=== PATIENT | female | born 1995 | race Caucasian/White ===

== ENCOUNTER 2017-10-17 11:00 | Inpatient (IN) | payer MEDICAID ==
[~2017-10-17] VITALS: Ht 154.9 cm; Wt 71.4 kg
[2017-10-17] MEDS ORDERED: LACTATED RINGERS 1,000 ML IV SCH ×2 (11:03→17:27)
[2017-10-17] MEDS ORDERED: D5%-LACTATED RINGERS 1,000 ML IV SCH (11:03)
[2017-10-17] MEDS ORDERED: OXYTOCIN 30U/ 0.9% NaCL 500ML 500 ML IV ONE (11:03)
[2017-10-17] MEDS ORDERED: OXYTOCIN 30U/ 0.9% NaCL 500ML 500 ML IV PRN (11:03)
[2017-10-17] MEDS ORDERED: METOCLOPRAMIDE 5 MG/ML, 2ML IVPush PRN (11:30)
[2017-10-17] MEDS ORDERED: SODIUM CITRATE/CITRIC ACID 30 ML UDC PO PRN (11:30)
[2017-10-17] MEDS ORDERED: FENTANYL PF 100 MCG/2ML IV PRN (11:30)
[2017-10-17] MEDS ORDERED: FENTANYL PF 100 MCG/2ML IVPush PRN (11:30)
[2017-10-17] MEDS ORDERED: NEWBORN KIT ONE ×2 (11:41→11:50)
[2017-10-17] MEDS ORDERED: OXYTOCIN 30U/ 0.9% NaCL 500ML 500 ML ONE ×2 (11:41→19:56)
[2017-10-17 11:53] LABS: BASOPHILS # (AUTO) 0.03 x10^3/uL (0-0.1); BASOPHILS % (AUTO) 0 % (0-1); EOSINOPHILS # (AUTO) 0.01 x10^3/uL (0-0.4); EOSINOPHILS % (AUTO) 0 % (1-7); LYMPHOCYTES # (AUTO) 1.78 x10^3/uL (1-3.4); LYMPHOCYTES % (AUTO) 19 % (22-44); MD NO; MEAN CORPUSCULAR HEMOGLOBIN 29.4 pg (27.0-34.8); MEAN CORPUSCULAR HGB CONC 33.4 g/dL (32.4-35.8); MEAN PLATELET VOLUME 10.3 fL (7.4-10.4); MONOCYTES # (AUTO) 0.65 x10^3/uL (0.2-0.8); MONOCYTES % (AUTO) 7 % (2-9); NEUTROPHILS % (AUTO) 73 % (42-75); PLATELET COUNT 198 x10^3/uL (130-400); RED BLOOD COUNT 4.02 x10^6/uL (3.82-5.3); RED CELL DISTRIBUTION WIDTH 14.6 % (9.6-15.2)
[2017-10-17] MEDS ORDERED: ACETAMINOPHEN 325 MG TABLET ONE (12:00)
[2017-10-17] MEDS ORDERED: ACETAMINOPHEN 325 MG TABLET PO PRN ×2 (12:30→20:00)
[2017-10-17] MEDS ORDERED: FENTANYL PF 100 MCG/2ML ONE (16:38)
[2017-10-17] MEDS ORDERED: FENTANYL/BUPIV./NS/PF 250 ML EPIDCONT ONE (16:38)
[2017-10-17] MEDS ORDERED: BUPIVACAINE 0.25% ONE (16:38)
[2017-10-17] MEDS ORDERED: FENTANYL/BUPIV./NS/PF 250 ML EPIDCONT SCH (17:27)
[2017-10-17] MEDS ORDERED: EPHEDRINE 50 MG/ML, 1ML IVPush PRN (17:30)
[2017-10-17] MEDS ORDERED: ONDANSETRON 2MG/ML, 2ML IVPush PRN (17:30)
[2017-10-17] MEDS ORDERED: LACTATED RINGERS 1,000 ML IVBOLUS PRN (17:30)
[2017-10-17] MEDS ORDERED: IBUPROFEN 600 MG TABLET ONE (19:55)
[2017-10-17] MEDS ORDERED: ONDANSETRON 2MG/ML, 2ML IV PRN (20:00)
[2017-10-17] MEDS ORDERED: CARBOPROST TROMETHAMINE 250 MCG/ML, 1ML IM PRN (20:00)
[2017-10-17] MEDS ORDERED: BISACODYL 10 MG SUPP PR PRN (20:00)
[2017-10-17] MEDS ORDERED: MISOPROSTOL 200 MCG TABLET PR PRN (20:00)
[2017-10-17] MEDS ORDERED: OXYcodone/APAP 5/325MG TABLET PO PRN ×2 (20:00)
[2017-10-17] MEDS ORDERED: METOCLOPRAMIDE 5 MG/ML, 2ML IV PRN (20:00)
[2017-10-17] MEDS ORDERED: GLYCERIN ADULT SUPP PR PRN (20:00)
[2017-10-17] MEDS ORDERED: IBUPROFEN 800 MG TABLET PO PRN (20:00)
[2017-10-17] MEDS: IBUPROFEN 600 MG TABLET PO PRN (20:01)
[2017-10-17] MEDS: PLEASE ENTER HEIGHT AND WEIGHT MC SCH ×2 (20:30→20:56)
[2017-10-17] MEDS: OXYTOCIN 30U/ 0.9% NaCL 500ML 500 ML IV SCH (20:53)
[2017-10-17 22:00] VITALS: BP 117/80
[2017-10-17 22:42] VITALS: BP 100/60
[2017-10-18 00:30] VITALS: BP 112/67
[2017-10-18 03:01] LABS: BASOPHILS # (AUTO) 0.04 x10^3/uL (0-0.1); BASOPHILS % (AUTO) 0 % (0-1); EOSINOPHILS # (AUTO) 0.01 x10^3/uL (0-0.4); EOSINOPHILS % (AUTO) 0 % (1-7); LYMPHOCYTES # (AUTO) 1.96 x10^3/uL (1-3.4); LYMPHOCYTES % (AUTO) 14 % (22-44); MD NO; MEAN CORPUSCULAR HEMOGLOBIN 29.4 pg (27.0-34.8); MEAN CORPUSCULAR HGB CONC 33.3 g/dL (32.4-35.8); MEAN CORPUSCULAR VOLUME 88.4 fL (80-100); MEAN PLATELET VOLUME 9.6 fL (7.4-10.4); MONOCYTES % (AUTO) 6 % (2-9); NEUTROPHILS # (AUTO) 11.65 x10^3/uL (1.8-6.8); NEUTROPHILS % (AUTO) 81 % (42-75); PLATELET COUNT 182 x10^3/uL (130-400); RED BLOOD COUNT 3.93 x10^6/uL (3.82-5.3); RED CELL DISTRIBUTION WIDTH 14.6 % (9.6-15.2)
[2017-10-18 04:08] VITALS: BP 109/68
[2017-10-18] MEDS: IBUPROFEN 600 MG TABLET PO PRN ×3 (04:28→21:43)
[2017-10-18] MEDS: PLEASE ENTER HEIGHT AND WEIGHT MC SCH ×3 (04:30→20:30)
[2017-10-18] MEDS: OXYTOCIN 30U/ 0.9% NaCL 500ML 500 ML IV SCH ×2 (05:56→15:56)
[2017-10-18 08:00] VITALS: BP 118/84
[2017-10-18] MEDS: PRENATAL VIT/IRON/FA 1 EACH TABLET PO SCH (09:00)
[2017-10-18 12:00] VITALS: BP 109/64
[2017-10-18 16:00] VITALS: BP 110/72
[2017-10-18 20:00] VITALS: BP 118/82
[2017-10-18] MEDS: DOCUSATE 100 MG CAPSULE PO PRN (21:41)
[2017-10-19] MEDS: OXYTOCIN 30U/ 0.9% NaCL 500ML 500 ML IV SCH (01:56)
[2017-10-19] MEDS: IBUPROFEN 600 MG TABLET PO PRN ×2 (03:00→09:12)
[2017-10-19] MEDS: PLEASE ENTER HEIGHT AND WEIGHT MC SCH (04:30)
[2017-10-19 09:12] VITALS: BP 123/68
[2017-10-19] MEDS: DOCUSATE 100 MG CAPSULE PO PRN (09:13)
[2017-10-19] MEDS: PRENATAL VIT/IRON/FA 1 EACH TABLET PO SCH (09:13)
[2017-10-19] MEDS ORDERED: IBUP-1222 PO (10:29)
== END 2017-10-19 14:09 | disposition home or self-care (01) | DRG 775 ==
LOC: LDIP 11:00 → 2NW 21:40
PROVIDERS: ADMIT Student in an Organized Health Care Education/Training Program; ATTEND Student in an Organized Health Care Education/Training Program
PROC: 10E0XZZ Delivery of Products of Conception, External Approach (ICD-10-PCS; principal; 2017-10-17)
PROC: 3E0R3BZ Introduction of Anesthetic Agent into Spinal Canal, Percutaneous Approach (ICD-10-PCS; 2017-10-17)
PROC: 00HU33Z Insertion of Infusion Device into Spinal Canal, Percutaneous Approach (ICD-10-PCS; 2017-10-17)
DX: O13.4 Gestational [pregnancy-induced] hypertension without significant proteinuria, complicating childbirth (principal); O14.94 Unspecified pre-eclampsia, complicating childbirth; Z37.0 Single live birth; Z3A.38 38 weeks gestation of pregnancy
CPT/HCPCS: 36415; 85025; 86850; 86900; J2590; J3010; J7120; J7121

== ENCOUNTER 2019-10-04 21:20 | Outpatient (CLI) | payer MEDICAID ==
[~2019-10-04] VITALS: Ht 154.9 cm; Wt 81.0 kg
[~2019-10-04 21:20] MED LIST: IBUP-1222 PO
[2019-10-04 23:09] LABS: BASOPHILS # (AUTO) 0.02 x10^3/uL (0-0.1); BASOPHILS % (AUTO) 0 % (0-1); EOSINOPHILS # (AUTO) 0.04 x10^3/uL (0-0.4); EOSINOPHILS % (AUTO) 0 % (1-7); LYMPHOCYTES # (AUTO) 2.16 x10^3/uL (1-3.4); LYMPHOCYTES % (AUTO) 20 % (22-44); MD NO; MEAN CORPUSCULAR HEMOGLOBIN 30.3 pg (27.0-34.8); MEAN CORPUSCULAR HGB CONC 33.9 g/dL (32.4-35.8); MEAN CORPUSCULAR VOLUME 89.4 fL (80-100); MEAN PLATELET VOLUME 9.8 fL (7.4-10.4); MONOCYTES # (AUTO) 0.75 x10^3/uL (0.2-0.8); MONOCYTES % (AUTO) 7 % (2-9); NEUTROPHILS # (AUTO) 7.62 x10^3/uL (1.8-6.8); NEUTROPHILS % (AUTO) 72 % (42-75); PLATELET COUNT 209 x10^3/uL (130-400); RED BLOOD COUNT 3.86 x10^6/uL (3.82-5.3); RED CELL DISTRIBUTION WIDTH 14.2 % (9.6-15.2)
[2019-10-04 23:19] LABS: ALANINE AMINOTRANSFERASE 27 U/L (12-78); ALBUMIN 2.6 g/dL (3.4-5.0); ANION GAP 9 mmol/L (5-15); CALCIUM 8.5 mg/dL (8.5-10.1); CHLORIDE 109 mmol/L (98-107); CREATININE 0.51 mg/dL (0.55-1.02)
[2019-10-04 23:21] LABS: ALKALINE PHOSPHATASE 139 U/L (45-117); TOTAL PROTEIN 6.6 g/dL (6.4-8.2)
[2019-10-04 23:22] LABS: BILIRUBIN,TOTAL < 0.1 mg/dL (0.2-1.0)
== END 2019-10-05 01:10 | disposition home or self-care (01) ==
LOC: LDOP 21:20
PROVIDERS: ATTEND Student in an Organized Health Care Education/Training Program
DX: O62.8 Other abnormalities of forces of labor (principal); Z3A.37 37 weeks gestation of pregnancy
CPT/HCPCS: 36415; 59025; 80053; 84550; 85025; 99211; G0463

== ENCOUNTER 2019-10-14 11:29 | Outpatient (CLI) | payer MEDICAID ==
[~2019-10-14] VITALS: Ht 154.9 cm; Wt 80.5 kg
[2019-10-14 11:48] VITALS: BP 131/85
[2019-10-14 12:16] LABS: BASOPHILS # (AUTO) 0.03 x10^3/uL (0-0.1); BASOPHILS % (AUTO) 0 % (0-1); EOSINOPHILS # (AUTO) 0.01 x10^3/uL (0-0.4); EOSINOPHILS % (AUTO) 0 % (1-7); LYMPHOCYTES # (AUTO) 1.63 x10^3/uL (1-3.4); LYMPHOCYTES % (AUTO) 18 % (22-44); MD NO; MEAN CORPUSCULAR HEMOGLOBIN 29.4 pg (27.0-34.8); MEAN CORPUSCULAR HGB CONC 32.8 g/dL (32.4-35.8); MEAN CORPUSCULAR VOLUME 89.7 fL (80-100); MEAN PLATELET VOLUME 9.5 fL (7.4-10.4); MONOCYTES # (AUTO) 0.64 x10^3/uL (0.2-0.8); MONOCYTES % (AUTO) 7 % (2-9); NEUTROPHILS # (AUTO) 6.78 x10^3/uL (1.8-6.8); NEUTROPHILS % (AUTO) 75 % (42-75); PLATELET COUNT 205 x10^3/uL (130-400); RED BLOOD COUNT 4.07 x10^6/uL (3.82-5.3); RED CELL DISTRIBUTION WIDTH 14.4 % (9.6-15.2)
[2019-10-14 12:24] LABS: MICROSCOPIC INDICATED
[2019-10-14 12:25] LABS: ALANINE AMINOTRANSFERASE 26 U/L (12-78); ALBUMIN 2.7 g/dL (3.4-5.0); ANION GAP 9 mmol/L (5-15); CALCIUM 8.9 mg/dL (8.5-10.1); CHLORIDE 109 mmol/L (98-107); CREATININE 0.66 mg/dL (0.55-1.02)
[2019-10-14 12:27] LABS: ALKALINE PHOSPHATASE 157 U/L (45-117); BILIRUBIN,TOTAL 0.4 mg/dL (0.2-1.0); TOTAL PROTEIN 6.8 g/dL (6.4-8.2)
[2019-10-14 12:28] LABS: BILIRUBIN, DIRECT < 0.1 mg/dL (0.1-0.2)
== END 2019-10-14 13:35 | disposition home or self-care (01) ==
LOC: LDOP 11:29
PROVIDERS: ATTEND Student in an Organized Health Care Education/Training Program
DX: Z34.83 Encounter for supervision of other normal pregnancy, third trimester (principal); Z3A.38 38 weeks gestation of pregnancy
CPT/HCPCS: 36415; 59025; 80053; 81001; 82248; 82570; 84156; 84550; 85025; 99211; G0463

== ENCOUNTER 2019-10-14 20:09 | Inpatient (IN) | payer MEDICAID ==
[~2019-10-14] VITALS: Ht 154.9 cm; Wt 80.5 kg
[2019-10-14 21:03] LABS: MICROSCOPIC INDICATED
[2019-10-14] MEDS ORDERED: OXYTOCIN 30U/ 0.9% NaCL 500ML 500 ML IV PRN (21:50)
[2019-10-14] MEDS ORDERED: OXYTOCIN 30U/ 0.9% NaCL 500ML 500 ML IV ONE (21:50)
[2019-10-14] MEDS ORDERED: D5%-LACTATED RINGERS 1,000 ML IV SCH (21:50)
[2019-10-14] MEDS ORDERED: LIDOCAINE 1%, 20ML ONE (21:56)
[2019-10-14] MEDS ORDERED: NEWBORN KIT ONE (21:56)
[2019-10-14] MEDS ORDERED: MISOPROSTOL 200 MCG TABLET ONE (21:57)
[2019-10-14] MEDS ORDERED: OXYTOCIN 30U/ 0.9% NaCL 500ML 500 ML ONE (21:57)
[2019-10-14] MEDS ORDERED: FENTANYL PF 100 MCG/2ML IVPush PRN (22:00)
[2019-10-14] MEDS: LACTATED RINGERS 1,000 ML IV SCH (22:00)
[2019-10-14] MEDS ORDERED: TERBUTALINE 1 MG/ML, 1ML IVPush PRN (22:00)
[2019-10-14] MEDS ORDERED: SODIUM CITRATE/CITRIC ACID 30 ML UDC PO PRN (22:00)
[2019-10-14] MEDS ORDERED: FENTANYL PF 100 MCG/2ML IV PRN (22:00)
[2019-10-14] MEDS ORDERED: TERBUTALINE 1 MG/ML, 1ML SQ PRN (22:00)
[2019-10-14] MEDS ORDERED: ONDANSETRON 2MG/ML, 2ML ONE (22:06)
[2019-10-14] MEDS: ONDANSETRON 2MG/ML, 2ML IVPush PRN (22:15)
[2019-10-14 22:20] LABS: BASOPHILS # (AUTO) 0.05 x10^3/uL (0-0.1); BASOPHILS % (AUTO) 1 % (0-1); EOSINOPHILS # (AUTO) 0.03 x10^3/uL (0-0.4); EOSINOPHILS % (AUTO) 0 % (1-7); LYMPHOCYTES # (AUTO) 2.28 x10^3/uL (1-3.4); LYMPHOCYTES % (AUTO) 26 % (22-44); MD NO; MEAN CORPUSCULAR HGB CONC 33.5 g/dL (32.4-35.8); MEAN CORPUSCULAR VOLUME 89.6 fL (80-100); MEAN PLATELET VOLUME 9.7 fL (7.4-10.4); MONOCYTES # (AUTO) 0.74 x10^3/uL (0.2-0.8); MONOCYTES % (AUTO) 8 % (2-9); NEUTROPHILS # (AUTO) 5.68 x10^3/uL (1.8-6.8); NEUTROPHILS % (AUTO) 65 % (42-75); PLATELET COUNT 197 x10^3/uL (130-400); RED BLOOD COUNT 3.95 x10^6/uL (3.82-5.3); RED CELL DISTRIBUTION WIDTH 14.2 % (9.6-15.2)
[2019-10-15] MEDS: LACTATED RINGERS 1,000 ML IV SCH ×2 (07:33→08:55)
[2019-10-15] MEDS ORDERED: BUPIVACAINE 0.25% ONE (08:50)
[2019-10-15] MEDS ORDERED: FENTANYL/BUPIV./NS/PF 250 ML EPIDCONT ONE (08:50)
[2019-10-15] MEDS ORDERED: LACTATED RINGERS 1,000 ML IV SCH (11:06)
[2019-10-15] MEDS ORDERED: FENTANYL/BUPIV./NS/PF 250 ML EPIDCONT SCH (11:06)
[2019-10-15] MEDS ORDERED: NALOXONE 0.4 MG/ML, 1ML IVPush PRN (11:30)
[2019-10-15] MEDS ORDERED: EPHEDRINE 50 MG/ML, 1ML IVPush PRN (11:30)
[2019-10-15] MEDS ORDERED: ONDANSETRON 2MG/ML, 2ML IVPush PRN (11:30)
[2019-10-15] MEDS ORDERED: LACTATED RINGERS 1,000 ML IVBOLUS PRN (11:30)
[2019-10-15] MEDS ORDERED: DIPHENHYDRAMINE 50 MG/ML, 1ML IVPush PRN (11:30)
[2019-10-15] MEDS ORDERED: ONDANSETRON 2MG/ML, 2ML ONE (11:35)
[2019-10-15] MEDS: ONDANSETRON 2MG/ML, 2ML IVPush PRN (11:36)
[2019-10-15] MEDS ORDERED: OXYTOCIN 30U/ 0.9% NaCL 500ML 500 ML ONE (17:14)
[2019-10-15] MEDS: OXYTOCIN 30U/ 0.9% NaCL 500ML 500 ML IV SCH (17:37)
[2019-10-15] MEDS ORDERED: ONDANSETRON 2MG/ML, 2ML IV PRN (18:00)
[2019-10-15] MEDS ORDERED: METHYLERGONOVINE 0.2 MG/ML IM PRN (18:00)
[2019-10-15] MEDS ORDERED: ACETAMINOPHEN 325 MG TABLET PO PRN (18:00)
[2019-10-15] MEDS ORDERED: CARBOPROST TROMETHAMINE 250 MCG/ML, 1ML IM PRN (18:00)
[2019-10-15] MEDS ORDERED: GLYCERIN ADULT SUPP PR PRN (18:00)
[2019-10-15] MEDS ORDERED: BISACODYL 10 MG SUPP PR PRN (18:00)
[2019-10-15] MEDS ORDERED: DOCUSATE 100 MG CAPSULE PO PRN (18:00)
[2019-10-15] MEDS ORDERED: OXYcodone/APAP 5/325MG TABLET PO PRN ×2 (18:00)
[2019-10-15] MEDS ORDERED: METOCLOPRAMIDE 5 MG/ML, 2ML IV PRN (18:00)
[2019-10-15] MEDS ORDERED: MISOPROSTOL 200 MCG TABLET PR PRN (18:00)
[2019-10-15] MEDS ORDERED: IBUPROFEN 800 MG TABLET PO PRN (18:00)
[2019-10-15] MEDS ORDERED: SIMETHICONE 80 MG CHEW TAB PO PRN (18:00)
[2019-10-15 20:30] VITALS: BP 112/79
[2019-10-15] MEDS: IBUPROFEN 600 MG TABLET PO PRN (20:57)
[2019-10-16 00:30] VITALS: BP 118/77
[2019-10-16 01:22] LABS: BASOPHILS # (AUTO) 0.04 x10^3/uL (0-0.1); BASOPHILS % (AUTO) 0 % (0-1); EOSINOPHILS # (AUTO) 0.02 x10^3/uL (0-0.4); EOSINOPHILS % (AUTO) 0 % (1-7); LYMPHOCYTES # (AUTO) 1.64 x10^3/uL (1-3.4); LYMPHOCYTES % (AUTO) 13 % (22-44); MD NO; MEAN CORPUSCULAR HEMOGLOBIN 29.7 pg (27.0-34.8); MEAN CORPUSCULAR HGB CONC 33.2 g/dL (32.4-35.8); MEAN CORPUSCULAR VOLUME 89.5 fL (80-100); MEAN PLATELET VOLUME 9.8 fL (7.4-10.4); MONOCYTES # (AUTO) 0.64 x10^3/uL (0.2-0.8); MONOCYTES % (AUTO) 5 % (2-9); NEUTROPHILS # (AUTO) 10.31 x10^3/uL (1.8-6.8); NEUTROPHILS % (AUTO) 82 % (42-75); PLATELET COUNT 177 x10^3/uL (130-400); RED BLOOD COUNT 3.89 x10^6/uL (3.82-5.3); RED CELL DISTRIBUTION WIDTH 13.8 % (9.6-15.2)
[2019-10-16] MEDS: OXYTOCIN 30U/ 0.9% NaCL 500ML 500 ML IV SCH ×2 (03:37→13:37)
[2019-10-16 04:00] VITALS: BP 108/68
[2019-10-16] MEDS: IBUPROFEN 600 MG TABLET PO PRN ×2 (04:29→11:50)
[2019-10-16 07:54] VITALS: BP 114/77
[2019-10-16] MEDS ORDERED: PRENATAL VIT/IRON/FA 1 EACH TABLET PO SCH (09:00)
[2019-10-16] MEDS ORDERED: PREN1TAB98 PO (09:03)
[2019-10-16] MEDS ORDERED: IBUP-1222 PO (09:03)
[2019-10-16 13:04] VITALS: BP 98/63
[2019-10-16 16:12] VITALS: BP 110/72
== END 2019-10-16 18:10 | disposition home or self-care (01) | DRG 560 ==
LOC: LDOP 20:09 → LDIP 21:51 → 2NW 10-15 20:25
PROVIDERS: ADMIT Student in an Organized Health Care Education/Training Program; ATTEND Student in an Organized Health Care Education/Training Program
PROC: 10E0XZZ Delivery of Products of Conception, External Approach (ICD-10-PCS; principal; 2019-10-15)
PROC: 10907ZC Drainage of Amniotic Fluid, Therapeutic from Products of Conception, Via Natural or Artificial Opening (ICD-10-PCS; 2019-10-15)
PROC: 3E033VJ Introduction of Other Hormone into Peripheral Vein, Percutaneous Approach (ICD-10-PCS; 2019-10-15)
PROC: 3E0R3BZ Introduction of Anesthetic Agent into Spinal Canal, Percutaneous Approach (ICD-10-PCS; 2019-10-15)
PROC: 00HU33Z Insertion of Infusion Device into Spinal Canal, Percutaneous Approach (ICD-10-PCS; 2019-10-15)
DX: O14.04 Mild to moderate pre-eclampsia, complicating childbirth (principal); Z37.0 Single live birth; Z3A.38 38 weeks gestation of pregnancy
CPT/HCPCS: 36415; 81001; 82570; 84156; 85025; 86592; 86850; 86900; 87086; G0378; J2405; J3490; J2590; J3010; J7120; J7121